=== PATIENT | male | born 2005 | race Hispanic/Latino ===

== ENCOUNTER 2025-08-23 13:12 | Emergency (ER) | payer SELFPAY ==
[~2025-08-23] VITALS: Ht 165.1 cm; Wt 76.2 kg
[2025-08-23 13:37] LABS: IMMATURE GRANULOCYTE ABSOLUTE 0.14 K/uL (0-1); NUCLEATED RED BLOOD CELLS 0.0 % (0.0-0.19); PLATELET COUNT (AUTO) 192 K/uL (130-400); RED BLOOD CELL COUNT(AUTO) 4.59 MIL/uL (4.50-6.20); RED CELL DISTRIBUTION WIDTH 12.0 % (11.0-15.5); WHITE BLOOD COUNT (AUTO) 10.7 K/uL (4.8-10.8)
[2025-08-23] MEDS: DICYCLOMINE HCL 10 MG/5 ML ML PO ONE (13:38)
[2025-08-23] MEDS: LIDOCAINE HCL 2% VISCOUS 15 ML UDCUP PO ONE (13:38)
[2025-08-23] MEDS: MAG/ALUM/SIMETH 30 ML UDCUP PO ONE (13:38)
--- NOTE | 2025-08-23 13:43 | ERN ---
ED Note History of Present Illness Stated Complaint: ABD PAIN Chief Complaint: Abdominal Pain Time Seen by MD: 13:15 Time Seen by Midlevel: 13:15 Dictation: The patient is a 20-year-old male with no past medical history who presents to the emergency department with complaints of epigastric pain associated with nausea nonbloody vomiting onset this morning after eating corn nuts with hot sauce. Patient denies any fevers, denies any diarrhea. Reports his mother gave him an unknown pain medication which improved his pain. Reports that pain is now minimal Allergies: Coded Allergies: No Known Drug Allergies (Unverified Allergy, Unknown, 08/23/25) Past Medical History Past Medical History: No Pertinent History Surgical History: None RN Note Reviewed/Agreed w/PFSH: Yes Review of System Dictation Constitutional: Negative for fever,chills, and weight loss Eyes: Negative for injury, pain,redness, and discharge ENT: Negative for injury,pain or swelling Cardiovascular: Negative for chest pain, palpitations, and edema Respiratory: Negative for shortness of breath, cough, and wheezing, Abdomen/GI: Negative for diarrhea, and constipation positive for abdominal pain, nausea, vomiting Back: Negative for injury and pain : Negative for injury, bleeding and discharge MS/Extremity: Negative for injury and deformity Skin: Negative for rash, and discoloration Neuro: Negative for headache, weakness, numbness, tingling, and seizure Psych: Negative for suicide ideation, homicidal ideation, and hallucinations Initial Vital Sign VS Vital Signs Date Time Temp Pulse Resp B/P (MAP) Pulse Ox O2 Delivery O2 Flow Rate FiO2 08/23/25 13:14 98.6 78 18 136/89 99 Physical Exam Dictation Vital Signs reviewed General Appearance: Alert, oriented x 3, no acute distress, well developed, nourished. Head and Face: non-traumatic. Eyes: PERRL, pink conjunctivas, eyelid no trauma, anterior chamber with arcus senilis. Ears: Pinnas intact and no signs of trauma or erythema ear canals clear and no discharge TM no erythema Nose: No discharge, no bleeding. Oropharynx: Mouth normal, tongue pink. pharynx clear,no erythema, tonsils no exudates, no abscesses noted, mucous membrane moist Neck: Supple, non-tender, no thyromegaly, no masses, no JVD, no bruits Breast:Deferred Chest:No tenderness, no crepitus, no paradoxical movement, no retractions Lungs:Clear, well-ventilated, symmetric, no rales, no wheezing, no rhonchi, no stridor, good breath sounds bilaterally Heart: Regular rate, regular rhythm, no murmur, no gallops Vascular: no peripheral edema, Abdomen: Soft, positive bowel sounds, nondistended, no guarding, nontender, no rebound, no masses no hepatomegaly, no splenomegaly, no Mustafa's sign, no hernias. Rectal: Deferred Genital: Deferred Neurological: Normal speech, motor function intact, sensory function intact Musculoskeletal: Neck nontender, full range of motion, back nontender, full range of motion, Extremities: nontender, full range of motion Skin: Color pink, dry, no turgor, no rash, no lacerations, no abrasions, no contusions. Lymphatic: Deferred Results (Laboratory/Radiology) Laboratory/Radiology Laboratory Tests Test 08/23/25 13:30 08/23/25 14:31 White Blood Count 10.7 K/uL (4.8-10.8) Red Blood Count 4.59 MIL/uL (4.50-6.20) Hemoglobin 13.9 g/dL (14.0-18.0) L Hematocrit 41.9 % (42-54) L Mean Corpuscular Volume 91.3 fL (79-99) Mean Corpuscular Hemoglobin 30.3 pg (27.0-33.0) Mean Corpuscular Hemoglobin Concent 33.2 g/dL (32.0-36.0) Red Cell Distribution Width 12.0 % (11.0-15.5) Platelet Count 192 K/uL (130-400) Mean Platelet Volume 10.5 fL (7.5-10.5) Immature Granulocyte % (Auto) 1.3 % (0-1) H Neutrophils (%) (Auto) 76.5 % (40.0-77.0) Lymphocytes (%) (Auto) 14.7 % (21.0-51.0) L Monocytes (%) (Auto) 6.5 % (3.0-13.0) Eosinophils (%) (Auto) 0.7 % (0.0-8.0) Basophils (%) (Auto) 0.3 % (0.0-5.0) Neutrophils # (Auto) 8.2 K/uL (1.8-7.7) H Lymphocytes # (Auto) 1.6 K/uL (1.0-4.8) Monocytes # (Auto) 0.7 K/uL (0.1-1.0) Eosinophils # (Auto) 0.07 K/uL (0.00-0.70) Basophils # (Auto) 0.03 K/uL (0.00-0.20) Absolute Immature Granulocyte (auto 0.14 K/uL (0-1) Nucleated Red Blood Cells 0.0 % (0.0-0.19) Sodium Level 137 mmol/L (136-145) Potassium Level 3.8 mmol/L (3.5-5.1) Chloride Level 101 mmol/L (101-111) Carbon Dioxide Level 31 mmol/L (21-32) Blood Urea Nitrogen 13 mg/dL (7-18) Creatinine 0.9 mg/dL (0.5-1.3) Glomerular Filtration Rate Calc 124 mL/min (>90) Random Glucose 145 mg/dL (70-105) H Total Calcium 8.7 mg/dL (8.5-10.1) Total Bilirubin 0.3 mg/dL (0.2-1.0) Direct Bilirubin 0.1 mg/dL (0.0-0.3) Aspartate Amino Transf (AST/SGOT) 18 U/L (10-37) Alanine Aminotransferase (ALT/SGPT) 28 U/L (12-78) Alkaline Phosphatase 78 U/L (50-136) Total Protein 7.5 g/dL (6.0-8.3) Albumin 3.9 g/dL (3.5-5.0) Lipase 39 U/L (16-77) Urine Color YELLOW (YELLOW) Urine Appearance CLOUDY (CLEAR) H Urine pH 8.5 (5.0-8.0) H Urine Specific [place] 1.029 (1.001-1.031) Urine Protein 20 mg/dL (NEGATIVE) H Urine Glucose (UA) NEGATIVE mg/dL (NEGATIVE) Urine Ketones NEGATIVE mg/dL (NEGATIVE) Urine Occult Blood NEGATIVE (NEGATIVE) Urine Nitrate NEGATIVE (NEGATIVE) Urine Bilirubin NEGATIVE mg/dL (NEGATIVE) Urine Urobilinogen 0.2 mg/dL (0.2-1.0) Urine Leukocyte Esterase NEGATIVE Elana/uL Urine RBC 6-10 /HPF (0-1) H Urine WBC 6-10 /HPF (0-1) H Urine WBC Clumps (Auto) FEW /HPF (0-1) Urine Squamous Epithelial Cells RARE /HPF (0-2) Urine Amorphous Crystals (Auto) RARE /LPF (None Seen) Urine Bacteria RARE /HPF (None Seen) Urine Other Casts 3 /LPF (None Seen) Labs Reviewed?: Yes ED Course ED Course Orders Procedure Category Date Status Time Cbc With Differential LAB 08/23/25 Complete 13:24 Urinalysis Profile LAB 08/23/25 Complete 13:24 Lidocaine Hcl 2% PHA 08/23/25 Complete Viscous (Lidocaine Hcl 13:30 Mag/Alum/Simeth 30ml PHA 08/23/25 Complete (Maalox Plus 30ml) 13:30 Dicyclomine Hcl PHA 08/23/25 Complete (Bentyl 10mg/5ml 13:30 Lipase LAB 08/23/25 Complete 13:24 Basic Metabolic Panel LAB 08/23/25 Complete 13:24 Ondansetron Odt 4mg PHA 08/23/25 Complete Tab (Zofran 4mg Odt) 13:30 Hepatic Function Panel LAB 08/23/25 Complete 13:24 Culture Urine CIPRIANO 08/23/25 In Process 14:46 Current Medications Medications (Trade) Dose Ordered Sig/Teri Route PRN Reason Start Time Stop Time Status Last Admin Dose Admin Al Hydroxide/Mg Hydroxide (MAALox PLUS 30ML) 30 ml ONCE ONCE PO 08/23/25 13:30 08/23/25 13:31 DC 08/23/25 13:38 Dicyclomine HCl (Bentyl 10mg/5ml Syrup) 10 mg ONCE ONCE PO 08/23/25 13:30 08/23/25 13:31 DC 08/23/25 13:38 Lidocaine HCl (Lidocaine HCl 2% Viscous) 10 ml ONCE ONCE PO 08/23/25 13:30 08/23/25 13:31 DC 08/23/25 13:38 Ondansetron HCl (zoFRAN 4MG ODT) 4 mg ONCE ONCE SL 08/23/25 13:30 08/23/25 13:31 DC 08/23/25 13:38 Vital Signs Date Time Temp Pulse Resp B/P (MAP) Pulse Ox O2 Delivery O2 Flow Rate FiO2 08/23/25 13:14 98.6 78 18 136/89 99 Medical Decision Making MDM The patient is a 20-year-old male with no past medical history who presents to the emergency department with complaints of epigastric pain associated with nausea nonbloody vomiting onset this morning after eating corn nuts with hot sauce. Patient denies any fevers, denies any diarrhea. Reports his mother gave him an unknown pain medication which improved his pain. Reports that pain is now minimal CBC showed no leukocytosis, no anemia, chemistry showed mild hyperglycemia, normal lipase, normal liver enzymes, urinalysis was unremarkable. Patient reports improving in abdominal pain. Reports no longer having any pain. On physical exam patient is in no acute distress, abdomen is nontender to palpa tion. Patient has symptoms likely due to gastritis. Patient will be sent home with medication for his gastritis. Differential diagnosis: Gastritis, gastroenteritis, dehydration, electrolyte imbalance, pancreatitis Need for hospitalization: Patient does not meet criteria for hospitalization. There are no social concerns with this patient. DX & DISP Disposition: Discharge Departure Impression: Primary Impression: Gastritis Condition: Stable Scripts Famotidine (Pepcid) 20 Mg Tablet 1 TAB PO BID for 30 Days, #60 TAB 0 Refills Prov: CELESTINO LONG 08/23/25 Additional Instructions: Your labs were unremarkable. Your symptoms are due to gastritis. Please avoid any spicy foods, fatty foods or foods that exacerbate your symptoms. Avoid laying down right after eating. Please follow up with your primary doctor in 1- 2 days. FOLLOW-UP WITH PRIMARY CARE PROVIDER IN 1 TO 2 DAYS. TAKE MEDICATIONS DIRECTED HERE IN THE EMERGENCY ROOM. OKAY TO CONTINUE HOME MEDICATIONS UNLESS OTHERWISE DISCUSSED DURING YOUR VISIT IN THE EMERGENCY ROOM TODAY. RETURN TO YOUR NEAREST EMERGENCY ROOM IF SYMPTOMS WORSEN OR IF THERE IS NO IMPROVEMENT. CALL 911 IF YOU NEED IMMEDIATE ASSISTANCE. TAKE TYLENOL [id number] NEEDED AND IF NO CONTRAINDICATIONS ARE PRESENT. INCREASE ORAL HYDRATION. A WOUND CULTURE OR URINE CULTURE WAS ORDERED HERE IN THE EMERGENCY ROOM DEPARTMENT PLEASE FOLLOW-UP WITH PRIMARY CARE PROVIDER AND ADVISE THEM TO GET REPEAT PORTS FROM OUR FACILITY. IF YOU HAD ANY JOAQUIM WRAP/SPLINTS THAT WERE APPLIED HERE, PLEASE DO NOT REMOVE THEM UNTIL YOU SEE YOUR PRIMARY CARE OR SPECIALTY. Time of Disposition: 14:58 I have reviewed the case, and I agree with, Diagnosis and Plan CELESTINO LONG Aug 23, 2025 13:43
[2025-08-23 14:07] LABS: CREATININE 0.9 mg/dL (0.5-1.3); GLOMERULAR FILTR. RATE CALC 124.0 mL/min (>90); GLUCOSE,RANDOM 145.0 mg/dL (70-105); SODIUM SERUM 137.0 mmol/L (136-145); UREA NITROGEN, BLOOD 13.0 mg/dL (7-18)
[2025-08-23 14:11] LABS: ASPARTATE AMINOTRANSFERASE 18.0 U/L (10-37); TOTAL PROTEIN, SERUM 7.5 g/dL (6.0-8.3)
[2025-08-23 14:42] LABS: ADD UA MICROSCOPIC YES; APPEARANCE,URINE CLOUDY (CLEAR); GLUCOSE, URINE (UA) NEGATIVE (NEGATIVE); LEUKOCYTE ESTERASE ,URINE NEGATIVE Leu/uL (NEGATIVE); NITRATE,URINE NEGATIVE (NEGATIVE); OCCULT BLOOD,URINE NEGATIVE (NEGATIVE)
[2025-08-23 14:45] LABS: OTHER CASTS, URINE 3 /LPF (None Seen); SQUAMOUS EPITHELIAL CELL,UR RARE /HPF (0-2); WBC CLUMP FEW /HPF (0-1)
[2025-08-23] MEDS ORDERED: FAMO-136 PO (14:58)
[2025-08-23 15:00] VITALS: BP 124/78; PULSE 78; RESP 18; TEMP 98.1; O2SAT 99
== END 2025-08-23 15:09 | disposition home or self-care (01) ==
LOC: EDH 13:12
DX: K29.70 Gastritis, unspecified, without bleeding (principal); R11.2 Nausea with vomiting, unspecified
CPT/HCPCS: 36415; 80048; 80076; 81001; 83690; 85025; 87086; 99284